=== PATIENT | female | born 1960 | race Caucasian/White ===

== ENCOUNTER 2022-06-25 08:50 | Day surgery (SDC) | payer OTHER ==
[~2022-06-25] VITALS: Ht 170.2 cm; Wt 99.7 kg
[2022-06-25] MEDS ORDERED: RYBELSUS3 MG PO (09:23)
[2022-06-25] MEDS ORDERED: ZANAFLEX2 MG PO (09:24)
[2022-06-25] MEDS ORDERED: ARMOUR THYROID30 MG PO (09:24)
[2022-06-25 09:30] VITALS: BP 131/82; PULSE 94; TEMP 97.6
[2022-06-25 10:12] VITALS: BP 120/82; PULSE 83; TEMP 97.9
--- NOTE | 2022-06-25 10:12 | NUR ---
PATIENT AMBULATED TO THE CHAIR WITH STANDBY ASSIST. PATIENT IS DROWSY AND ORIENTED X3. BREATHING REGULAR AND UNLABORED, DENIES PAIN AND NAUSEA. PATIENT STATES "I FEEL GREAT, SO CALM". SEE CHART FOR VITAL SIGNS. NURSE HANDOFF COMPLETED IN ROOM. PATIENT RESTING IN CHAIR WITH CALL LIGHT IN REACH.
[2022-06-25 10:15] VITALS: BP 112/87; PULSE 84
[2022-06-25 10:30] VITALS: BP 121/85; PULSE 78
--- NOTE | 2022-06-25 10:30 | NUR ---
PATIENT ALERT AND ORIENTED. PATIENT HAD GRAPE JUICE AND LEXUS CRACKERS, BOTH TOLERATED WELL. DISCHARGE TEACHING COMPLETED WITH PRINTED EDUCATION SENT HOME WITH PATIENT. PATIENT VERBALIZED UNDERSTANDING OF TEACHING. MET WITH PATIENT AND TO DISCUSS PROCEDURE. IV REMOVED. PATIENT DISCHARGED HOME WITH TRANSPORT.
[2022-06-25 10:41] VITALS: BP 111/79; PULSE 83
== END 2022-06-25 10:50 | disposition home or self-care (01) ==
LOC: SDCO 08:50
DX: Z12.11 Encounter for screening for malignant neoplasm of colon (principal); D12.5 Benign neoplasm of sigmoid colon; K62.1 Rectal polyp; K57.30 Diverticulosis of large intestine without perforation or abscess without bleeding; Z86.19 Personal history of other infectious and parasitic diseases; Z28.310 Unvaccinated for COVID-19
CPT/HCPCS: J2704; J3010

== ENCOUNTER → 2023-04-11 | Outpatient (CLI) | payer OTHER ==
[~2023-04-11] MED LIST: ARMOUR THYROID30 MG PO; RYBELSUS3 MG PO; ZANAFLEX2 MG PO
== END ==
LOC: MHCPAIN 10:08
DX: M47.816 Spondylosis without myelopathy or radiculopathy, lumbar region (principal); M54.50 Low back pain, unspecified; M53.3 Sacrococcygeal disorders, not elsewhere classified; M54.32 Sciatica, left side
CPT/HCPCS: G0463

== ENCOUNTER → 2023-04-12 | Outpatient (CLI) | payer OTHER ==
[~2023-04-12] MED LIST changes: +Lidocaine PF 1% (10 MG/ML) 5 ML VIAL ONE
== END ==
LOC: MHCPAIN 14:16
DX: M79.18 Myalgia, other site (principal); M54.50 Low back pain, unspecified
CPT/HCPCS: J0665; J1040

== ENCOUNTER → 2023-05-09 | Outpatient (CLI) | payer OTHER ==
[~2023-05-09] MED LIST changes: +Iohexol 300 - 10 ML VIAL ONE; -Lidocaine PF 1% (10 MG/ML) 5 ML VIAL ONE
== END ==
LOC: MHCPAIN 13:24
DX: M46.1 Sacroiliitis, not elsewhere classified (principal); M53.3 Sacrococcygeal disorders, not elsewhere classified; M47.898 Other spondylosis, sacral and sacrococcygeal region
CPT/HCPCS: G0260; J0665; J1040; Q9967

== ENCOUNTER → 2023-06-07 | Outpatient (CLI) | payer OTHER ==
[~2023-06-07] MED LIST changes: -Iohexol 300 - 10 ML VIAL ONE
== END ==
LOC: MHCPAIN 10:21
DX: M25.552 Pain in left hip (principal); M54.17 Radiculopathy, lumbosacral region
CPT/HCPCS: G0463